=== PATIENT | male | born 1975 | race Caucasian/White ===

== ENCOUNTER 2019-01-01 16:16 | Emergency (ER) | payer SELFPAY ==
[2019-01-01 16:25] VITALS: BP 131/93; PULSE 88; RESP 18; TEMP 36.6; O2SAT 97; BMI 25.0
--- NOTE | 2019-01-01 16:30 | CT_ITS ---
CT abdomen pelvis wo con CLINICAL INDICATION: Severe gastric pain ITS.REASON: ABD PAIN ORDERING PHYSICIAN: Kaushal Schultz MD PATIENT AGE: 43 years COMPARISON: None TECHNIQUE: Axial images obtained with sagittal and coronal reformats. All CT scans at the facility use one or more dose reduction, viz: automated exposure control, ma/kV adjustment per patient size (including targeted exams where dose is matched to indication, i.e. head), or iterative reconstruction technique. FINDINGS: Lower thorax: No acute finding There is a 9 mm isodensity in the hepatic dome on the right which may be due to a small cyst. Ill-defined area of decreased density is present in the right hepatic lobe medially nonspecific too small to categorize at approximately 5 mm. The spleen, adrenal glands, and pancreas are unremarkable. Prior cholecystectomy. Common bile duct is prominent at 16 mm. Pancreatic duct does not appear dilated. No intestinal obstruction or free air. Prior appendectomy. No renal or ureteral calculi. No hydronephrosis. There are scattered colonic diverticula. No evidence of diverticulitis. No pelvic mass abnormal fluid collection or focal inflammatory change of the pelvis. No acute bony anomalies. IMPRESSION: 1. Prior cholecystectomy. The common bile duct is prominent measuring up to 16 mm in diameter. There are no previous exams for comparison to determine at this is acute or chronic. This could be due to post cholecystectomy ectasia. Please correlate with laboratory values is obstruction of the common bile duct distally would be a consideration as well.. 2. Nonspecific 9 mm isodensity of the hepatic dome and 5 mm isodensity of the right hepatic lobe posterior medially.
[2019-01-01 16:49] LABS: Basophils # 0.1 K/mm3 (0-0.2); Basophils % 0.6 % (0.1-2.0); Eosinophils # 0.1 K/mm3 (0.0-0.4); Eosinophils % 0.8 % (0.1-12.0); Hematocrit 48.7 % (42.0-52.0); Hemoglobin 16.2 g/dL (14.1-18.0); Lymphocytes # 1.2 K/mm3 (0.7-4.5); Lymphocytes % 11.5 % (10-50); Mean Corpuscular HGB Conc 33.3 g/dL (31.8-35.4); Mean Corpuscular Hemoglobin 30.7 pg (27.0-31.2); Mean Platelet Volume 6.7 fl (7.4-10.4); Monocytes # 0.5 K/mm3 (0.1-1.0); Monocytes % 5.3 % (1.7-9.3); Neutrophils # 8.3 K/mm3 (1.8-7.8); Neutrophils % 81.8 % (37.0-80.0); Platelet Count 290 K/mm3 (142-424); Red Blood Count 5.29 M/mm3 (4.60-6.20); Red Cell Distribution Width 13.2 % (11.5-17.5); White Blood Count 10.2 K/mm3 (4.8-10.8)
[2019-01-01 16:55] LABS: Microscopic, Urine URINE MICROSCOPIC (MICROSCOPIC)
[2019-01-01 16:59] LABS: Appearance,Urine CLEAR (Clear); Blood, Urine TRACE-I (Negative); Color,Urine YELLOW (Yellow); Glucose,Urine (UA) Negative (Negative); Ketones,Urine Negative (Negative); Leukocyte Esterase,Urine Negative (Negative); Nitrate,Urine Negative (Negative); Protein,Urine 1+ (Negative); Urobilinogen,Urine 0.2 EU/dl (0.2)
[2019-01-01 17:04] LABS: Bilirubin,Urine 1+ (Negative)
[2019-01-01 17:09] LABS: Alanine Aminotransferase 32 U/L (12-78); Albumin Level 4.4 gm/dL (3.4-5.0); Albumin/Globulin Ratio 1.3 (1.1-1.8); Alkaline Phosphatase 76 U/L (46-116); Anion Gap 15.7 mEq/L (5-15); Aspartate Amino Transferase 19 U/L (15-37); Bilirubin,Total 0.4 mg/dL (0.2-1.0); Blood Urea Nitrogen 15 mg/dL (7-18); Calcium 9.2 mg/dL (8.5-10.1); Carbon Dioxide 25 mmol/L (21.0-32.0); Chloride 104 mmol/L (98-107); Creatinine Clearance Estimated 105 mL/min (50-200); Creatinine,Serum 1.09 mg/dL (0.70-1.30); Estimated Glomerular Filt Rate 74 ml/min (>60); GFR (African American) 90 ML/MIN (>60); Globulin 3.5 gm/dl (1.3-3.2); Glucose 106 mg/dL (74-106); Potassium 3.7 mmoL/L (3.5-5.1); Sodium 141 mmol/L (136-145); Total Protein,Serum 7.9 gm/dL (6.4-8.2)
[2019-01-01 17:10] LABS: Amphetamine/Metha Screen,Urine Negative ng/mL (<1000); Barbiturates Screen,Urine Negative ng/mL (<200); Benzodiazepines Screen,Urine Negative ng/mL (<200); Cannabinoid Screen,Urine Positive ng/mL (<50); Cocaine Screen,Urine Negative ng/mL (<300); Methadone Screen,Urine Negative ng/mL (<300); Opiate Screen,Urine Positive ng/mL (<300); Phencyclidine Screen,Urine Negative ng/mL (<25)
[2019-01-01 17:12] LABS: Mucus,Urine 1+ /lpf; WBC,Urine Occasional #/hpf (0-3)
--- NOTE | 2019-01-01 17:16 | PC.NURSE ---
PT INTIALLY REFUSED HIS CT WHEN DYLON CAME TO GET HIM , PT THEN DECIDED HE WANTED TO GET IT CAUSE HE WAS WANTING PAIN MEDS. PT JUST GOT BACK FROM CT
--- NOTE | 2019-01-01 18:51 | HMH.EDABDPAI ---
ED Disposition Clinical Impression: Abdominal pain Disposition: Home, Self-Care Condition on Discharge: Good Instructions: DI for Acute Abdomen Prescriptions: Dicyclomine HCl [Bentyl 10mg capsule] 10 mg PO TID 7 Days #20 cap Promethazine HCl [Phenergan 25mg tab] 25 mg PO Q6H PRN 5 Days #15 tab PRN Reason: Nausea And Vomiting Referrals: Provider,Referral, MD [Primary Care Provider] - Time of Disposition: 19:03 - Critical Care Critical Care Time: No Attestation: On 01/01/19, the high probability of a clinically significant, sudden or life threatening deterioration of the following system(s) required my full and direct attention, intervention and personal management. The time I documented below is in addition to time spent performing reported procedures but includes the following listed in this critical care notation. Medical Decision Making - Medical Records Medical records reviewed: Yes: I reviewed the patient's medical records. - Hiram Inquiry Pt receiving controlled substance: No Hiram was queried for this patient: No Vital Signs: 01/01/19 16:25 Temperature 97.8 F Temperature Source Oral Pulse Rate [Right Apical] 88 Respiratory Rate 18 Blood Pressure [Right Arm] 131/93 H Blood Pressure Mean [Right Arm] 105 02 Sat by Pulse Oximetry 97 Oxygen Delivery Method Room Air - Lab Data Lab results reviewed: Yes: I reviewed the patient's lab results. Lab Results 01/01/19 16:39: WBC 10.2, RBC 5.29, Hgb 16.2, Hct 48.7, MCV 92.0, MCH 30.7, MCHC 33.3, RDW 13.2, Plt Count 290, MPV 6.7 L, Neut % (Auto) 81.8 H, Lymph % (Auto) 11.5, [place] % (Auto) 5.3, Eos % (Auto) 0.8, Baso % (Auto) 0.6, Neut # (Auto) 8.3 H, Lymph # (Auto) 1.2, [place] # (Auto) 0.5, Eos # (Auto) 0.1, Baso # (Auto) 0.1 01/01/19 16:39: Sodium 141, Potassium 3.7, Chloride 104, Carbon Dioxide 25, Anion Gap 15.7 H, BUN 15, Creatinine 1.09, Estimated Creat Clear 105, Estimated GFR 74, Est GFR ( Amer) 90, Glucose 106, Calcium 9.2, Total Bilirubin 0.4, AST 19, ALT 32, Alkaline Phosphatase 76, Total Protein 7.9, Albumin 4.4, Globulin 3.5 H, Albumin/Globulin Ratio 1.3 01/01/19 16:50: Urine Color Yellow, Urine Appearance Clear, Urine pH 8.0, Ur Specific [place] 1.020, Urine Protein 1+, Urine Glucose (UA) Negative, Urine Ketones Negative, Urine Blood Trace-i, Urine Nitrate Negative, Urine Bilirubin 1+ A, Urine Urobilinogen 0.2, Ur Leukocyte Esterase Negative, Urine RBC 3-5, Urine WBC Occasional, Urine Mucus 1+ 01/01/19 16:50: Urine Opiates Screen Positive H, Urine Methadone Screen Negative, Ur Barbituates Screen Negative, Ur Phencyclidine Scrn Negative, Ur Amphetamines Screen Negative, U Benzodiazepines Scrn Negative, Urine Cocaine Screen Negative, U Marijuana (THC) Screen Positive H Result diagrams: 01/01/19 16:39 01/01/19 16:39 Orders (Tests/Meds): ED MEDICATIONS Generic Name Dose Route Start Last Admin Trade Name Freq PRN Reason Stop Dose Admin Sodium Chloride 1,000 mls @ 999 mls/hr 01/01/19 16:30 01/01/19 16:41 Sod Chlor 0.9% 1000ml Bag IV 01/01/19 17:30 999 mls/hr .Q1H1M AMBER Administration Discontinued Medications Generic Name Dose Route Start Last Admin Trade Name Freq PRN Reason Stop Dose Admin Ketorolac Tromethamine 30 mg 01/01/19 16:29 01/01/19 16:40 Toradol 30mg/Ml Vial IV 01/01/19 16:30 30 mg ONCE ONE Administration Ondansetron HCl 4 mg 01/01/19 16:29 01/01/19 16:41 Zofran 4mg/2ml Vial IV 01/01/19 16:30 4 mg ONCE ONE Administration Abdominal Pain HPI - General Chief Complaint: Abdominal Pain Stated Complaint: Vomiting,Abd Pain Time Seen by Provider: 01/01/19 18:52 Mode of Arrival: Ambulatory Source of Information: Patient Limitations: No Limitations Description of Symptoms (Recalled from ER Triage Doc. by RN): PT C/O SEVERE ABD PAIN AND VAOMITING. PT STATES HE HAS A HX OF GASTROPARESIS - History of Present Illness HPI narrative: severe abdominal cramping since 0800. Hi
--- NOTE | 2019-01-01 18:57 | ED_ITS ---
ED Disposition Clinical Impression: Abdominal pain Disposition: Home, Self-Care Condition on Discharge: Good Instructions: DI for Acute Abdomen Prescriptions: Dicyclomine HCl [Bentyl 10mg capsule] 10 mg PO TID 7 Days #20 cap Promethazine HCl [Phenergan 25mg tab] 25 mg PO Q6H PRN 5 Days #15 tab PRN Reason: Nausea And Vomiting Referrals: Provider,Referral, MD [Primary Care Provider] - Time of Disposition: 19:03 - Critical Care Critical Care Time: No Attestation: On 01/01/19, the high probability of a clinically significant, sudden or life threatening deterioration of the following system(s) required my full and direct attention, intervention and personal management. The time I documented below is in addition to time spent performing reported procedures but includes the following listed in this critical care notation. Medical Decision Making - Medical Records Medical records reviewed: Yes: I reviewed the patient's medical records. - Hiram Inquiry Pt receiving controlled substance: No Hiram was queried for this patient: No Vital Signs: 01/01/19 16:25 Temperature 97.8 F Temperature Source Oral Pulse Rate [Right Apical] 88 Respiratory Rate 18 Blood Pressure [Right Arm] 131/93 H Blood Pressure Mean [Right Arm] 105 02 Sat by Pulse Oximetry 97 Oxygen Delivery Method Room Air - Lab Data Lab results reviewed: Yes: I reviewed the patient's lab results. Lab Results 01/01/19 16:39: WBC 10.2, RBC 5.29, Hgb 16.2, Hct 48.7, MCV 92.0, MCH 30.7, MCHC 33.3, RDW 13.2, Plt Count 290, MPV 6.7 L, Neut % (Auto) 81.8 H, Lymph % (Auto) 11.5, [place] % (Auto) 5.3, Eos % (Auto) 0.8, Baso % (Auto) 0.6, Neut # (Auto) 8.3 H, Lymph # (Auto) 1.2, [place] # (Auto) 0.5, Eos # (Auto) 0.1, Baso # (Auto) 0.1 01/01/19 16:39: Sodium 141, Potassium 3.7, Chloride 104, Carbon Dioxide 25, Anion Gap 15.7 H, BUN 15, Creatinine 1.09, Estimated Creat Clear 105, Estimated GFR 74, Est GFR ( Amer) 90, Glucose 106, Calcium 9.2, Total Bilirubin 0.4, AST 19, ALT 32, Alkaline Phosphatase 76, Total Protein 7.9, Albumin 4.4, Globulin 3.5 H, Albumin/Globulin Ratio 1.3 01/01/19 16:50: Urine Color Yellow, Urine Appearance Clear, Urine pH 8.0, Ur Specific [place] 1.020, Urine Protein 1+, Urine Glucose (UA) Negative, Urine Ketones Negative, Urine Blood Trace-i, Urine Nitrate Negative, Urine Bilirubin 1+ A, Urine Urobilinogen 0.2, Ur Leukocyte Esterase Negative, Urine RBC 3-5, Urine WBC Occasional, Urine Mucus 1+ 01/01/19 16:50: Urine Opiates Screen Positive H, Urine Methadone Screen Negative, Ur Barbituates Screen Negative, Ur Phencyclidine Scrn Negative, Ur Amphetamines Screen Negative, U Benzodiazepines Scrn Negative, Urine Cocaine Screen Negative, U Marijuana (THC) Screen Positive H Result diagrams: 01/01/19 16:39 01/01/19 16:39 Orders (Tests/Meds): ED MEDICATIONS Generic Name Dose Route Start Last Admin Trade Name Freq PRN Reason Stop Dose Admin Sodium Chloride 1,000 mls @ 999 mls/hr 01/01/19 16:30 01/01/19 16:41 Sod Chlor 0.9% 1000ml Bag IV 01/01/19 17:30 999 mls/hr .Q1H1M AMBER Administration Discontinued Medications Generic Name Dose Route Start Last Admin Trade Name Freq PRN Reason Stop Dose Admin Ketorolac Tromethamine 30 mg 01/01
[2019-01-01 19:41] VITALS: BP 136/88; PULSE 86; RESP 16; TEMP 36.6; O2SAT 98
== END 2019-01-01 19:44 | disposition home or self-care (01) ==
PROVIDERS: Emergency Provider Emergency Medicine
DX: R11.10 Vomiting, unspecified (principal); K31.84 Gastroparesis
CPT/HCPCS: 74176; 80053; 80305; 81001; 85025; 96365; 96375; 99283; J2405

== ENCOUNTER 2020-08-21 03:20 | Emergency (ER) | payer MEDICAID, SELFPAY ==
--- NOTE | 2020-08-21 03:16 | ECG_ITS ---
APPROVED REPORT Exam: Resting ECG HR:89 bpm ECG Measurements Heart Rate 89 AXES [place] 156 P 73 QRSd 80 QRS 68 QT 364 T 23 QTc 442 Conclusion Sinus rhythm with premature atrial complexes with aberrant conduction Otherwise normal ECG Electronically signed by : Armani Atwood, 08/21/2020 08:48:36
[2020-08-21 03:20] VITALS: BP 126/63; PULSE 88; RESP 16; TEMP 36.7; O2SAT 97; BMI 23.0
--- NOTE | 2020-08-21 03:32 | XR_ITS ---
PROCEDURE: XR RIBS RT MIN 3V W CXR1V CLINICAL INDICATION: rib pain Posttraumatic pain COMPARISON: CT CT ANGIO CHEST from 08/21/2020 CR XR CHEST 2V from 08/21/2020 FINDINGS: Multiple views of the right ribs show no obvious fracture. No lytic or blastic change. Frontal view of the chest shows no acute finding IMPRESSION: No acute findings. Dictated by: Clint Torres MD 08/21/2020 07:32 Clint Torres MD in [place] 08/21/2020 07:32
--- NOTE | 2020-08-21 03:32 | XR_ITS ---
PROCEDURE: XR CHEST 2V CLINICAL HISTORY: sob Shortness of breath, fall with pain COMPARISON: CT CT ANGIO CHEST from 08/21/2020 FINDINGS: The cardiomediastinal silhouette and pulmonary vascularity are within normal limits. The lungs are clear without infiltrates, suspicious nodules, or pleural effusions. No acute bony abnormalities. IMPRESSION: No acute findings. Dictated by: Clint Torres MD 08/21/2020 07:33 Clint Torres MD in [facility] 08/21/2020 07:33
[2020-08-21 03:41] LABS: Basophils # 0.1 K/mm3 (0-0.2); Basophils % 0.6 % (0.1-2.0); Eosinophils # 0.2 K/mm3 (0.0-0.4); Eosinophils % 2.4 % (0.1-12.0); Hematocrit 45.3 % (42.0-52.0); Hemoglobin 14.7 g/dL (14.1-18.0); Lymphocytes # 2.3 K/mm3 (0.7-4.5); Mean Corpuscular HGB Conc 32.5 g/dL (31.8-35.4); Mean Corpuscular Hemoglobin 31.5 pg (27.0-31.2); Mean Corpuscular Volume 96.9 fl (80-94); Mean Platelet Volume 7.4 fl (7.4-10.4); Monocytes # 0.6 K/mm3 (0.1-1.0); Monocytes % 7.1 % (1.7-9.3); Neutrophils # 4.7 K/mm3 (1.8-7.8); Neutrophils % 59.9 % (37.0-80.0); Platelet Count 253 K/mm3 (142-424); Red Blood Count 4.67 M/mm3 (4.60-6.20); White Blood Count 7.8 K/mm3 (4.8-10.8)
[2020-08-21 03:49] LABS: Anion Gap 10.1 mEq/L (5-15); Blood Urea Nitrogen 21 mg/dl (9-20); Calcium 9.5 mg/dl (8.4-10.2); Carbon Dioxide 30 mmol/L (22.0-30.0); Chloride 103 mmol/L (98-107); Creatinine Clearance Estimated 104 mL/min (50-200); Estimated Glomerular Filt Rate 82 ml/min (>60); GFR (African American) 99 ML/MIN (>60); Glucose 128 mg/dl (74-100); Potassium 4.1 mmoL/L (3.5-5.1); Sodium 139 mmol/L (136-145)
[2020-08-21 03:50] LABS: Alanine Aminotransferase 71 U/L (12-78); Albumin Level 4.6 g/dl (3.5-5.0); Alkaline Phosphatase 78 U/L (38-126); Aspartate Amino Transferase 57 U/L (17-59); Bilirubin,Direct 0.2 mg/dl (0.0-0.4); Bilirubin,Indirect 0.2 mg/dL (0.0-0.9); Bilirubin,Total 0.4 mg/dl (0.2-1.3); Bilirubin,Unconjugated 0.1 mg/dL (0.0-1.1); Total Protein,Serum 7.8 g/dl (6.3-8.2)
[2020-08-21 03:54] LABS: C-Reactive Protein 3.3 mg/L (0-4)
--- NOTE | 2020-08-21 04:07 | CT_ITS ---
PROCEDURE: CT ANGIO CHEST CLINCIAL INDICATION: fall with chest pain Blunt trauma with injury and pain, contusion/abrasion or hematoma following injury COMPARISON: No exams were available for comparison TECHNIQUE: IV Contrast: 70ML Isovue 370 Axial images obtained with sagittal and coronal reformats. All CT scans at the facility use one or more dose reduction, viz: automated exposure control, ma/kV adjustment per patient size (including targeted exams where dose is matched to indication, i.e. head), or iterative reconstruction technique. FINDINGS: HEART AND MEDIASTINAL STRUCTURES: No evidence of aortic aneurysm or dissection. No evidence of central pulmonary embolus. Coronary artery calcifications are present. No mediastinal or hilar mass or adenopathy is evident. LUNGS AND PLEURAL SPACES: Unremarkable. BONY STRUCTURES: No acute fracture. 3D images of the rib cage show no evidence of acute fracture. There is a sclerotic lesion in the inferior endplate of T10 vertebral body and may be due to a bone island. UPPER ABDOMEN: 1 cm hypodensity right hepatic lobe. Nonspecific. Reflux of contrast into the inferior vena cava and hepatic veins. Prior cholecystectomy. ADDITIONAL FINDINGS: No other significant abnormalities. IMPRESSION: No acute finding. Incidental nonacute findings as described above. Dictated by: Clint Torres MD 08/21/2020 08:27 Clint Torres MD in [place] 08/21/2020 08:27
[2020-08-21 04:08] LABS: Erythrocyte Sedimentation Rate 12 mm/hr (0-15); Procalcitonin 0.067 ng/mL (0.0-2.0); Troponin I < 0.01 ng/ml (0.00-0.034)
--- NOTE | 2020-08-21 04:15 | HMH.EDGENADL ---
ED Disposition Clinical Impression: Costochondritis, acute Disposition: Home, Self-Care Condition on Discharge: Good Instructions: DI for Costochondritis Additional Instructions: use meds and see pcp for follow up Prescriptions: predniSONE [Prednisone 20mg Tab] 20 mg PO BID #10 tab Transmission Status: Pending to [facility] Ketorolac Tromethamine [Toradol 10mg tablet] 10 mg PO Q8H 5 Days #15 tab Transmission Status: Pending to [facility] Referrals: PCP,No [Primary Care Provider] - - Critical Care Critical Care Time: No Attestation: On 08/21/20, the high probability of a clinically significant, sudden or life threatening deterioration of the following system(s) required my full and direct attention, intervention and personal management. The time I documented below is in addition to time spent performing reported procedures but includes the following listed in this critical care notation. Medical Decision Making - Medical Records Medical records reviewed: Yes: I reviewed the patient's medical records. - Hiram Inquiry Pt receiving controlled substance: No Vital Signs: 08/21/20 03:20 Temperature 98.0 F Temperature Source Oral Pulse Rate [Right] 88 Respiratory Rate 16 Blood Pressure [Right Arm] 126/63 Blood Pressure Mean [Right Arm] 84 02 Sat by Pulse Oximetry 97 - Lab Data Lab results reviewed: Yes: I reviewed the patient's lab results. Lab Results 08/21/20 03:31: WBC 7.8, RBC 4.67, Hgb 14.7, Hct 45.3, MCV 96.9 H, MCH 31.5 H, MCHC 32.5, RDW 14.0, Plt Count 253, MPV 7.4, Neut % (Auto) 59.9, Lymph % (Auto) 30.0, [place] % (Auto) 7.1, Eos % (Auto) 2.4, Baso % (Auto) 0.6, Neut # (Auto) 4.7, Lymph # (Auto) 2.3, [place] # (Auto) 0.6, Eos # (Auto) 0.2, Baso # (Auto) 0.1, ESR 12 08/21/20 03:31: Sodium 139, Potassium 4.1, Chloride 103, Carbon Dioxide 30, Anion Gap 10.1, BUN 21 H, Creatinine 1.00, Estimated Creat Clear 104, Estimated GFR 82, Est GFR ( Amer) 99, Glucose 128 H, Calcium 9.5, Troponin I < 0.01, C-Reactive Protein 3.3, Procalcitonin 0.067 08/21/20 03:31: Total Bilirubin 0.4, Direct Bilirubin 0.2, Conjugated Bilirubin 0.0, Indirect Bilirubin 0.2, Unconjugated Bilirubin 0.1, AST 57, ALT 71, Alkaline Phosphatase 78, Total Protein 7.8, Albumin 4.6 08/21/20 03:31: Total Creatine Kinase 202 H Result diagrams: 08/21/20 03:31 08/21/20 03:31 Orders (Tests/Meds): ED MEDICATIONS Generic Name Dose Route Start Last Admin Trade Name Freq PRN Reason Stop Dose Admin Sodium Chloride 1,000 mls @ 999 mls/hr 08/21/20 03:45 08/21/20 03:39 Sod Chlor 0.9% 1000ml Bag IV 08/21/20 04:45 999 mls/hr .Q1H1M AMBER Administration Discontinued Medications Generic Name Dose Route Start Last Admin Trade Name Freq PRN Reason Stop Dose Admin Acetaminophen/Codeine Phosphate 1 srikanth 08/21/20 04:54 08/21/20 04:55 Acetaminophen 300mg W/Codeine 30mg Take Home Pack (6) PO 08/21/20 04:55 1 srikanth ONCE ONE Administration Iopamidol 70 ml 08/21/20 04:42 08/21/20 04:44 Iopamidol-370 (76%);100ml Bottle IV 08/21/20 04:43 70 ml ONCE ONE Administration Ketorolac Tromethamine 30 mg 08/21/20 03:35 08/21/20 03:38 Ketorolac 30mg/Ml Vial IV 08/21/20 03:36 30 mg ONCE ONE Administration Methylprednisolone Sodium Succinate 125 mg 08/21/20 03:35 08/21/20 03:38 Methylprednisolone Sod Succ 125mg Vial IV 08/21/20 03:36 125 mg ONCE ONE Administration Sodium Chloride 40 ml 08/21/20 04:42 08/21/20 04:44 0.9 % Sodium Chloride 50 Ml Vial IV 08/21/20 04:43 40 ml ONCE ONE Administration Sodium Chloride 10 ml 08/21/20 04:42 08/21/20 04:43 Sodium Chloride 0.9% 10ml Syr (Rad Only) IV 08/21/20 04:43 10 ml ONCE ONE Administration ORDERS Category Date Time Status CT angio chest Stat Cat Scan 08/21/20 04:07 Taken XR chest 2V Stat Exams 08/21/20 03:32 Taken XR ribs RT min 3V w CXR1V Stat Exams 08/21/20 03:32 Taken Troponin I Q3H Lab 08/21/20 0
[2020-08-21 04:29] LABS: Creatine Kinase 202 U/L (55-170)
[2020-08-21 05:11] VITALS: BP 123/89; PULSE 97; RESP 14; TEMP 36.9; O2SAT 98
== END 2020-08-21 05:14 | disposition home or self-care (01) ==
PROVIDERS: Emergency Provider Emergency Medicine
DX: M94.0 Chondrocostal junction syndrome [Tietze] (principal); W00.0XXA Fall on same level due to ice and snow, initial encounter; Y92.9 Unspecified place or not applicable; E11.9 Type 2 diabetes mellitus without complications; F17.210 Nicotine dependence, cigarettes, uncomplicated; F12.10 Cannabis abuse, uncomplicated
CPT/HCPCS: 71046; 71101; 71275; 80048; 80076; 82550; 84145; 84484; 85025; 85651; 86140; 93005; 96365; 96375; 99282; Q9967

== ENCOUNTER 2021-03-17 17:33 | Emergency (ER) | payer MEDICAID, SELFPAY ==
[2021-03-17 18:30] VITALS: BP 112/77; PULSE 84; RESP 18; TEMP 36.9; O2SAT 97; BMI 23.7
[2021-03-17 18:56] LABS: UTC Strep Screen (Rapid) Negative (Negative)
--- NOTE | 2021-03-17 19:07 | HMH.EDUTC ---
[facility] Clinical Impression: Viral syndrome, Exposure to COVID-19 virus Sinusitis Qualifiers: Sinusitis location: unspecified location Chronicity: acute Recurrence: non-recurrent Qualified Code(s): J01.90 - Acute sinusitis, unspecified Disposition: Home, Self-Care Condition on Discharge: Good Additional Instructions: Drink plenty of fluids. Take tylenol for pain or fever. Return if you begin to have difficulty breathing. Follow up with your regular doctor. GO TO THE ER FOR ANY WORSENING SYMPTOMS Quarantine until you know the results of your covid-19 test. If it is positive, the health department should call you and give you further instructions about your length of Quarantine and other things. Notify your school or workplace of your results and follow their instructions regarding return to work/school. Prescriptions: predniSONE [Deltasone 10mg tablet] 10 mg PO BID 5 Days #10 tab Transmission Status: Received by [facility] guaiFENesin [Mucinex 600mg tablet] 1 - 2 tab PO BIDP PRN #30 tab PRN Reason: Congestion Transmission Status: Received by [facility] Azithromycin [Z-Sukhjinder 250mg Tab*] 250 mg PO UD DOSE PK #6 tab Transmission Status: Received by [facility] Referrals: Provider,Referral, MD [Primary Care Provider] - Forms: Work/School Release Time of Disposition: 19:13 Medical Decision Making - Medical Records Medical records reviewed: No: I reviewed the patient's medical records. - Hiram Inquiry Pt receiving controlled substance: No Vital Signs: 03/17/21 18:30 03/17/21 19:20 Temperature 98.5 F 98.5 F Temperature Source Oral Pulse Rate 84 Pulse Rate [Right Brachial] 84 Respiratory Rate 18 18 Blood Pressure 112/77 Blood Pressure [Right Arm] 112/77 Blood Pressure Mean [Right Arm] 88 Blood Pressure Source [Right Arm] Automatic Cuff Blood Pressure Position [Right Arm] Sitting 02 Sat by Pulse Oximetry 97 Oxygen Delivery Method Room Air - Lab Data Lab Results 03/17/21 18:46: Strep Scn Rapid Clinic Negative Orders (Tests/Meds): ORDERS Category Date Time Status Strep Screen Confirmation Stat Micro 03/17/21 18:46 Received [facility] [place] - General Stated complaint: covid test Time Seen by Provider: 03/17/21 19:08 Mode of Arrival: Ambulatory Source of Information: Patient Limitations: No Limitations Description of Symptoms (Recalled from Triage Doc. by RN): PATIENT C/O HEADACHE, CONGESTION, AND HOARSE VOICE. NEEDING COVID TEST FOR WORK HEENT Symptoms (Recalled from RN notes): Yes Resp Symptoms (Recalled from RN notes): No Skin Symptoms (Recalled from RN notes): No MS Symptoms (Recalled from RN notes): No Functional Status (Recalled from RN notes): WNL - History of Present Illness Provider Complaint: He has felt bad for the past 2 days. He has sinus congestion, cough, sore throat and he feels bad. He denies any known covid-19 exposure, but he needs to be tested for his work. - Related Data Previous Rx's Medication Instructions Recorded Metoclopramide HCl [Reglan 10mg 10 mg PO TID PRN 10 Days #20 tab 01/29/19 Tab] Metoclopramide HCl [Reglan 10mg 10 mg PO TID 7 Days #20 tab 05/12/19 Tab] Sucralfate [Carafate 1gm Tab] 1 gm PO ACHS 7 Days #30 tab 05/12/19 Ketorolac Tromethamine [Toradol 10 mg PO Q8H 5 Days #15 tab 08/21/20 10mg tablet] predniSONE [Prednisone 20mg 20 mg PO BID #10 tab 08/21/20 Tab] Azithromycin [Z-Sukhjinder 250mg Tab*] 250 mg PO UD DOSE PK #6 tab 03/17/21 guaiFENesin [Mucinex 600mg tablet] 1 - 2 tab PO BIDP PRN #30 tab 03/17/21 predniSONE [Deltasone 10mg tablet] 10 mg PO BID 5 Days #10 tab 03/17/21 Allergies Allergy/AdvReac Type Severity Reaction Status Date / Time No Known Allergies Allergy Verified 05/30/19 14:51 - Worker's Comp Is this a Worker's Comp case?: No [facility] History - Hepatitis A Screen Drug use history?: No High risk sexual behaviors?: No History of sex
[2021-03-17 19:20] VITALS: BP 112/77; PULSE 84; RESP 18; TEMP 36.9; O2SAT 97
== END 2021-03-17 19:25 | disposition home or self-care (01) ==
PROVIDERS: Emergency Provider Nurse Practitioner Family
DX: J01.90 Acute sinusitis, unspecified (principal); B34.9 Viral infection, unspecified; Z20.822 Contact with and (suspected) exposure to COVID-19; F17.210 Nicotine dependence, cigarettes, uncomplicated
CPT/HCPCS: 87880; 99203; G0463; U0003

== ENCOUNTER 2021-10-11 19:45 | Emergency (ER) | payer MEDICAID, SELFPAY ==
--- NOTE | 2021-10-11 19:35 | ECG_ITS ---
APPROVED REPORT Exam: Resting ECG HR:100 bpm ECG Measurements Heart Rate 100 AXES OR 164 P 65 QRSd 89 QRS 63 QT 334 T 51 QTc 391 Conclusion SINUS TACHYCARDIA ABNORMAL RHYTHM ECG UNCONFIRMED REPORT Electronically signed by : Armani Atwood MD 10/13/2021 16:04:35
--- NOTE | 2021-10-11 19:46 | PC.NURSE ---
Triaging pt and he is A&Ox4. He reports he smoked marijuana and claims he had had a seizure and the same thing happened 3 wks again . He has an PIV that infuses but does not draw blood. When attempting to place another IV and collect labs he is refusing to be stuck. Dr. Miller in room and pt states I want to leave. I didn't do drugs and I don't wanna be stuck again . pt signed ama form.
[2021-10-11 19:55] VITALS: BP 0/0; PULSE 0; RESP 0; TEMP -17.7; TEMP 0; O2SAT 0
== END 2021-10-11 20:08 | disposition left against medical advice (07) ==
LOC: ER 20:06
PROVIDERS: Emergency Provider Emergency Medicine
DX: Z53.21 Procedure and treatment not carried out due to patient leaving prior to being seen by health care provider (principal); R56.9 Unspecified convulsions
CPT/HCPCS: 93005; 99211

== ENCOUNTER 2021-11-05 07:45 | Emergency (ER) | payer MEDICAID, SELFPAY ==
[2021-11-05 07:45] VITALS: BP 141/102; PULSE 141; RESP 24; TEMP 37.4; O2SAT 96; BMI 28.3
--- NOTE | 2021-11-05 08:25 | XR_ITS ---
PROCEDURE INFORMATION: Exam: XR Chest Exam date and time: 11/05/2021 8:49 AM Age: 45 years old Clinical indication: Shortness of breath; Patient HX: Smoker; Additional info: Decreased o2 sat TECHNIQUE: Imaging protocol: XR of the chest. Views: 1 view. COMPARISON: CR XR RIBS RT MIN 3V W CXR1V 08/21/2020 3:39 AM FINDINGS: Lungs: No focal airspace disease. Pleural spaces: Unremarkable. No pleural effusion. No pneumothorax. Heart/Mediastinum: Cardiomediastinal silhouette is within normal limits. Bones/joints: Unremarkable. IMPRESSION: No acute cardiopulmonary abnormality.
--- NOTE | 2021-11-05 08:31 | [facility].EDGENADL ---
ED Disposition Clinical Impression: Gastroenteritis, Intoxication Disposition: Home, Self-Care Condition on Discharge: Fair Additional Instructions: Please call primary care physician to have liver enzymes rechecked and please return to the emergency department with any new or worsening symptoms including shortness of breath, inability to tolerate food or drink by mouth or any other new or concerning symptoms. Referrals: Provider,Referral, [Primary Care Provider] - - Critical Care Critical Care Time: No Attestation: On , the high probability of a clinically significant, sudden or life threatening deterioration of the following system(s) required my full and direct attention, intervention and personal management. The time I documented below is in addition to time spent performing reported procedures but includes the following listed in this critical care notation. Medical Decision Making - [facility] Inquiry Pt receiving controlled substance: No Vital Signs: 11/05/21 07:45 Temperature 99.3 F Temperature Source Oral Pulse Rate [Right Radial] 141 H Respiratory Rate 24 Blood Pressure [Right Arm] 141/102 H Blood Pressure Mean [Right Arm] 115 Blood Pressure Source [Right Arm] Automatic Cuff Blood Pressure Position [Right Arm] Sitting 02 Sat by Pulse Oximetry 96 Oxygen Delivery Method Room Air - Lab Data Lab Results 11/05/21 07:50: WBC 14.2 H, RBC 5.01, Hgb 16.5, Hct 50.7, MCV 101.3 H, MCH 33.0 H, MCHC 32.6, RDW 13.5, Plt Count 271, MPV 7.6, Neut % (Auto) 85.8 H, Lymph % (Auto) 6.8 L, Tripp % (Auto) 6.6, Eos % (Auto) 0.0 L, Baso % (Auto) 0.7, Neut # (Auto) 12.2 H, Lymph # (Auto) 1.0, Tripp # (Auto) 0.9, Eos # (Auto) 0.0, Baso # (Auto) 0.1, Total Counted 100, Neutrophils % (Manual) 88 H, Lymphocytes % (Manual) 8 L, Monocytes % (Manual) 4, Platelet Estimate Normal, RBC Morphology Not Reportable, Macrocytosis 1+ 11/05/21 07:50: Sodium 139, Potassium 4.3, Chloride 105, Carbon Dioxide 25, Anion Gap 13.3, BUN 22 H, Creatinine 1.20, Estimated Creat Clear 108, Estimated GFR 66, Est GFR ( Amer) 80, Glucose 141 H, Calcium 8.3 L, Total Bilirubin 0.6, AST 105 H, ALT 284 H, Alkaline Phosphatase 88, Total Protein 7.8, Albumin 4.5, Globulin 3.3 H, Albumin/Globulin Ratio 1.4 11/05/21 07:50: Lactate 2.3 H Result diagrams: 11/05/21 07:50 11/05/21 07:50 Orders (Tests/Meds): ED MEDICATIONS Generic Name Dose Route Start Last Admin Trade Name Freq PRN Reason Stop Dose Admin Sodium Chloride 10 ml 11/05/21 08:25 Sodium Chloride 0.9% 10ml Flush Syringe IV 12/05/21 08:24 NEEDED PRN Maintain IV Site Discontinued Medications Generic Name Dose Route Start Last Admin Trade Name Freq PRN Reason Stop Dose Admin Lactated Ringer's 1,000 mls @ 999 mls/hr 11/05/21 08:27 11/05/21 08:31 Lactated Ringer's 1000 Ml Bag IV 11/05/21 09:27 999 mls/hr .Q1H1M ONE Administration Sodium Chloride 1,000 mls @ 999 mls/hr 11/05/21 08:30 Sod Chlor 0.9% 1000ml Bag IV 11/05/21 09:30 .Q1H1M AMBER Naloxone HCl 2 mg 11/05/21 08:14 Naloxone 2mg/2ml Syringe IV 11/05/21 08:15 ONCE ONE Naloxone HCl 2 mg 11/05/21 07:50 11/05/21 07:50 Naloxone 2mg/2ml Syringe IV 11/05/21 07:51 2 mg ONCE ONE Administration Ondansetron HCl 4 mg 11/05/21 08:14 Ondansetron 4mg/2ml Vial IV 11/05/21 08:15 ONCE ONE Ondansetron HCl 4 mg 11/05/21 07:55 11/05/21 07:55 Ondansetron 4mg/2ml Vial IV 11/05/21 07:56 4 mg ONCE ONE Administration ORDERS Category Date Time Status Drug Screen,Urine Stat Lab 11/05/21 08:25 Ordered ECG Request by /Nse Stat Y 11/05/21 08:25 Ordered Medical Decision Narrative: 45-year-old male presents emergency department with history of fever/chills, vomiting and diarrhea for the past 3 days some bright red blood and an episode of vomiting, without any history of esophageal varices or cirrhosis noted patient, which is likely due to mucosal tear, with no
[2021-11-05 08:40] LABS: Chloride 105 mmol/L (98-107); Sodium 139 mmol/L (136-145)
[2021-11-05 08:41] LABS: Basophils # 0.1 K/mm3 (0-0.2); Basophils % 0.7 % (0.1-2.0); Hematocrit 50.7 % (42.0-52.0); Hemoglobin 16.5 g/dL (14.1-18.0); Lymphocytes % 6.8 % (10-50); Mean Corpuscular HGB Conc 32.6 g/dL (31.8-35.4); Mean Corpuscular Volume 101.3 fl (80-94); Mean Platelet Volume 7.6 fl (7.4-10.4); Monocytes # 0.9 K/mm3 (0.1-1.0); Monocytes % 6.6 % (1.7-9.3); Neutrophils # 12.2 K/mm3 (1.8-7.8); Neutrophils % 85.8 % (37.0-80.0); Platelet Count 271 K/mm3 (142-424); Potassium 4.3 mmoL/L (3.5-5.1); Red Blood Count 5.01 M/mm3 (4.60-6.20); Red Cell Distribution Width 13.5 % (11.5-17.5); White Blood Count 14.2 K/mm3 (4.8-10.8)
[2021-11-05 08:42] LABS: MANUAL DIFFERENTIAL MANUAL DIFFERENTIAL (MANUAL DIFF)
[2021-11-05 08:43] LABS: Alanine Aminotransferase 284 U/L (12-78); Albumin Level 4.5 g/dl (3.5-5.0); Albumin/Globulin Ratio 1.4 (1.1-1.8); Alkaline Phosphatase 88 U/L (38-126); Anion Gap 13.3 mEq/L (5-15); Aspartate Amino Transferase 105 U/L (17-59); Bilirubin,Total 0.6 mg/dl (0.2-1.3); Blood Urea Nitrogen 22 mg/dl (9-20); Carbon Dioxide 25 mmol/L (22.0-30.0); Creatinine Clearance Estimated 108 mL/min (50-200); Estimated Glomerular Filt Rate 66 ml/min (>60); GFR (African American) 80 ML/MIN (>60); Globulin 3.3 g/dL (1.3-3.2); Total Protein,Serum 7.8 g/dl (6.3-8.2)
[2021-11-05 08:44] LABS: Calcium 8.3 mg/dl (8.4-10.2); Glucose 141 mg/dl (74-100)
[2021-11-05 08:48] LABS: Lactic Acid 2.3 mmol/L (0.7-2.1)
[2021-11-05 09:14] LABS: Lymphocytes % 8 % (10-50); Macrocytosis 1+; Monocytes % 4 % (2-9); Neutrophils % 88 % (42-76); Platelet Estimate Normal; Total Cells Counted 100
--- NOTE | 2021-11-05 09:45 | ECG_ITS ---
APPROVED REPORT Exam: Resting ECG HR:74 bpm ECG Measurements Heart Rate 74 AXES AK 168 P 64 QRSd 89 QRS 26 QT 340 T 23 QTc 368 Conclusion SINUS RHYTHM WITH SINUS ARRHYTHMIA NORMAL ECG UNCONFIRMED REPORT Electronically signed by : Armani Atwood MD 11/06/2021 15:12:28
[2021-11-05 10:55] VITALS: BP 135/98; PULSE 98; RESP 20; TEMP 36.8; O2SAT 95
[2021-11-05 12:34] LABS: Reflex Lactic Add Lactic Reflex
== END 2021-11-05 11:00 | disposition home or self-care (01) ==
PROVIDERS: Emergency Provider Student in an Organized Health Care Education/Training Program
DX: R41.0 Disorientation, unspecified (principal); R50.9 Fever, unspecified; R11.10 Vomiting, unspecified; R19.7 Diarrhea, unspecified; F17.210 Nicotine dependence, cigarettes, uncomplicated
CPT/HCPCS: 71045; 80053; 83605; 85007; 85025; 93005; 96361; 96374; 96375; 96376; 99285; J2310; J2405

== ENCOUNTER → 2021-11-10 15:50 | Outpatient (CLI) | payer MEDICAID, SELFPAY ==
[2021-11-10 13:06] LABS: Adenovirus,PCR Not Detected (NotDetected); Bordetella Pertussis Not Detected (NotDetected); Chlamydophila Pneumoniae, PCR Not Detected (NotDetected); Coronavirus 19, PCR Not Detected (NotDetected); Coronavirus 229E Not Detected (NotDetected); Coronavirus NL63 Not Detected (NotDetected); Coronavirus OC43 Not Detected (NotDetected); Coronovirus HKU1,PCR Not Detected (NotDetected); Human Metapneumovirus Not Detected (NotDetected); Influenza A, PCR Not Detected (NotDetected); Influenza AH1, 2009 Not Detected (NotDetected); Influenza AH1, PCR Not Detected (NotDetected); Influenza AH3,PCR Not Detected (NotDetected); Influenza B, PCR Not Detected (NotDetected); Mycoplasma Pneumoniae, PCR Not Detected (NotDetected); Parainfluenza 1, PCR Not Detected (NotDetected); Parainfluenza 2, PCR Not Detected (NotDetected); Parainfluenza 3, PCR Not Detected (NotDetected); Parainfluenza 4, PCR Not Detected (NotDetected); Respiratory Syncytial Virus Not Detected (NotDetected); Rhinovirus/Enterovirus Not Detected (NotDetected)
== END ==
PROVIDERS: Visit Provider Family Medicine
DX: R69 Illness, unspecified (principal); Z11.52 Encounter for screening for COVID-19; R50.9 Fever, unspecified; R10.9 Unspecified abdominal pain; R51.9 Headache, unspecified; R11.2 Nausea with vomiting, unspecified; R19.7 Diarrhea, unspecified
CPT/HCPCS: 87581; 87632; 87798; C9803; U0003; U0005

== ENCOUNTER → 2021-12-16 12:48 | Outpatient (CLI) | payer MEDICAID, SELFPAY ==
[2021-12-16 13:16] LABS: Basophils # 0.1 K/mm3 (0-0.2); Basophils % 1.1 % (0.1-2.0); Eosinophils # 0.2 K/mm3 (0.0-0.4); Eosinophils % 4.3 % (0.1-12.0); Hemoglobin 17.8 g/dL (14.1-18.0); Lymphocytes # 1.8 K/mm3 (0.7-4.5); Lymphocytes % 32.6 % (10-50); Mean Corpuscular HGB Conc 34.9 g/dL (31.8-35.4); Mean Corpuscular Hemoglobin 32.4 pg (27.0-31.2); Mean Corpuscular Volume 92.7 fl (80-94); Mean Platelet Volume 6.9 fl (7.4-10.4); Monocytes # 0.4 K/mm3 (0.1-1.0); Monocytes % 7.1 % (1.7-9.3); Neutrophils # 3.1 K/mm3 (1.8-7.8); Neutrophils % 54.9 % (37.0-80.0); Platelet Count 223 K/mm3 (142-424); Red Cell Distribution Width 12.9 % (11.5-17.5); White Blood Count 5.6 K/mm3 (4.8-10.8)
[2021-12-16 13:39] LABS: Alanine Aminotransferase 258 U/L (12-78); Albumin Level 4.5 g/dl (3.5-5.0); Albumin/Globulin Ratio 1.5 (1.1-1.8); Alkaline Phosphatase 70 U/L (38-126); Anion Gap 14.9 mEq/L (5-15); Aspartate Amino Transferase 130 U/L (17-59); Bilirubin,Total 0.6 mg/dl (0.2-1.3); Blood Urea Nitrogen 18 mg/dl (9-20); Calcium 9.2 mg/dl (8.4-10.2); Carbon Dioxide 22 mmol/L (22.0-30.0); Chloride 103 mmol/L (98-107); Estimated Glomerular Filt Rate 91 ml/min (>60); GFR (African American) 110 ML/MIN (>60); Globulin 3.1 g/dL (1.3-3.2); Glucose 94 mg/dl (74-100); Potassium 3.9 mmoL/L (3.5-5.1); Sodium 136 mmol/L (136-145); Total Protein,Serum 7.6 g/dl (6.3-8.2)
[2021-12-17 06:12] LABS: HIV Screen 4th Generation wRfx Non Reactive (Non Reactive)
[2021-12-17 08:32] LABS: Hepatitis B Surface Antigen Negative (Negative); Hepatitis C Antibody >11.0 s/co ratio (0.0-0.9)
[2021-12-20 02:53] LABS: ALT (SGPT) P5P 248 IU/L (0-55); Alpha 2-Macroglobulins, Qn 217 mg/dL (110-276); Apolipoprotein A-1 115 mg/dL (101-178); Bilirubin, Total 0.4 mg/dL (0.0-1.2); Fibrosis Score 0.34 (0.00-0.21); Fibrosis Stage F1-F2 (.); GGT 68 IU/L (0-65); Haptoglobin 129 mg/dL (23-355); Necroinflammat Activity Grade A3-Severe activity (.); Necroinflammat Activity Score 0.87 (0.00-0.17)
[2021-12-20 03:36] LABS: Hep A Ab, Total Negative (Negative); Hep B Core Ab, Total Negative (Negative); Hep B Surface Ab, Qual Non Reactive (.)
[2021-12-21 15:10] LABS: HCV Genotype Charge YES; Hepatitis C Genotype 1a (.)
[2022-01-18 07:39] LABS: Hep A Ab, IgM Negative
== END ==
PROVIDERS: PCP Nurse Practitioner Family; Visit Provider Nurse Practitioner Family
DX: B19.20 Unspecified viral hepatitis C without hepatic coma (principal); Z11.4 Encounter for screening for human immunodeficiency virus [HIV]
CPT/HCPCS: 36415; 80053; 81596; 85025; 86703; 86704; 86706; 86708; 87340; 87380; 87522; 87902; G0432